=== PATIENT | female | born 1960 | race Caucasian/White ===

== ENCOUNTER 2017-02-16 02:29 | Emergency (ER) | payer OTHER ==
[~2017-02-16] VITALS: Ht 157.5 cm; Wt 73.0 kg
[~2017-02-16 02:29] MED LIST: ALBU18HF INHALATION; AZIT250T94 PO; PHEN118L PO
[2017-02-16 02:32] VITALS: Ht 157.5 cm; Wt 73.0 kg
[2017-02-16] MEDS ORDERED: UDROBAC PO (02:44)
[2017-02-16] MEDS ORDERED: ALBU8.5H3 INH (02:44)
[2017-02-16] MEDS ORDERED: IBUP400T22 PO (02:44)
--- NOTE | 2017-02-16 02:55 | ERD ---
ER Documentation Chief Complaint Date/Time DATE: 02/16/17 TIME: 02:46 Chief Complaint sore throat x 2 days HPI 56-year-old female presenting with sore throat, runny nose, cough for about 2 days with associated chills. She had a few episodes of vomiting today but denies any abdominal pain, chest pain, or significant shortness of breath. She states she is short of breath only when she coughs. She denies any fevers. She has used albuterol in the past which has helped. ROS All systems reviewed and are negative except as per history of present illness. Medications Home Meds Active Scripts Guaifenesin-Codeine Phosphate* (Robitussin* AC) 5 Ml Syrup, 5 ML PO Q4H Y for COUGH, #100 ML Prov:FRANKLIN GEORGE MD 02/16/17 Albuterol Sulfate* (Proair HFA*) 8.5 Gm Hfa.aer.ad, 2 PUFF INH Q4H Y for WHEEZING AND SOB, #1 INHALER Prov:FRANKLIN GEORGE MD 02/16/17 Ibuprofen* (Motrin*) 400 Mg Tab, 400 MG PO Q6H Y for PAIN AND OR ELEVATED TEMP, #30 TAB Prov:FRANKLIN GEORGE MD 02/16/17 Albuterol Sulfate* (Ventolin HFA*) 18 Gm Hfa.aer.ad, 2 PUFF INHALATION Q4H, #1 INHALER Prov:NATACHA PEREIRA MD 09/26/16 Phenylephrine/Diphenhydramine (DIMETAPP COLD & CONGEST LIQUID) 118 Ml Liquid, 5 ML PO Q4H Y for COUGH, #4 OZ Prov:NATACHA PEREIRA MD 09/26/16 Azithromycin* (Zithromax*) 250 Mg Tablet, 250 MG PO .ZPACK DIRECTED, #6 TAB TAKE 500 MG (2 TABS) THE FIRST DAY THEN 250 MG (1 TAB) DAYS 2-5 Prov:NATACHA PEREIRA MD 09/26/16 Allergies Allergies: Coded Allergies: No Known Allergy (Unverified , 09/26/16) PMhx/Soc Medical and Surgical Hx: pt denies Surgical Hx Hx Respiratory Disorders: Yes (asthma) Hx Cardiac Disorders: Yes (htn) Hx Alcohol Use: No Hx Substance Use: No Hx Tobacco Use: No Smoking Status: Never smoker FmHx Family History: No diabetes Physical Exam Vitals Vital Signs Date Time Temp Pulse Resp B/P Pulse Ox O2 Delivery O2 Flow Rate FiO2 02/16/17 02:32 98.2 62 20 177/80 100 Physical Exam Const: Well-appearing, no distress, nontoxic Head: Atraumatic Eyes: Normal Conjunctiva ENT: Normal External Ears, Nose and Mouth. Hoarse voice. No trismus. No oropharyngeal swelling, erythema, or tonsillar exudate. No drooling. No stridor. Neck: Full range of motion. Shotty cervical lymphadenopathy. No meningismus. Resp: Clear to auscultation bilaterally Cardio: Regular rate and rhythm, no murmurs Abd: Soft, non tender, non distended. Normal bowel sounds Skin: No petechiae or rashes Back: No midline or flank tenderness Ext: No cyanosis, or edema Neur: Awake and alert Psych: Normal Mood and Affect Procedures/MDM Data and Course: I reviewed the nursing notes. Labs and imaging was felt not to be warranted. This is an otherwise healthy, well appearing patient presenting with uncomplicated URI symptoms, likely viral in etiology. Patient is non-toxic and well hydrated. I have low suspicion for pneumonia or significant bacterial disease. Patient will be treated with outpatient supportive care; no indications for antibiotics at this time. Discharge instructions have included return precautions and close follow up with PMD. She will be discharged with cough medication, albuterol refill as needed, and ibuprofen. Departure Diagnosis: Primary Impression: URI, acute Condition: Stable Patient Instructions: Uri, Viral, No Abx (Adult) Additional Instructions: Regresa a la tere de emergencias si carlos enrique sintomas estan empeorando en 3-4 maradiaga. FRANKLIN GEORGE MD Feb 16, 2017 02:54
== END 2017-02-16 02:50 | disposition home or self-care (01) ==
LOC: E/R 02:29
DX: J06.9 Acute upper respiratory infection, unspecified (principal); I10 Essential (primary) hypertension; J45.909 Unspecified asthma, uncomplicated
CPT/HCPCS: 99283